=== PATIENT | female | born 1940 | race Caucasian/White ===

== ENCOUNTER 2022-08-01 12:54 | Emergency (ER) | payer OTHER, BC ==
[2022-08-01 13:18] VITALS: BP 118/76; PULSE 76; RESP 18; TEMP 98; BMI 22.9
== END 2022-08-01 16:44 | disposition home or self-care (01) ==
LOC: FER 12:54
PROC: 09B Ear, Nose, Sinus, Excision (ICD-10-PCS; principal; 2022-08-01)
DX: T16.2XXA Foreign body in left ear, initial encounter (principal)
CPT/HCPCS: 99282-25